=== PATIENT | female | born 1955 | race Asian ===

== ENCOUNTER 2023-06-05 14:34 | Emergency (ER) | payer MEDICARE ==
[~2023-06-05] VITALS: Ht 154.9 cm; Wt 63.5 kg
[2023-06-05] MEDS ORDERED: ONDANSETRON HCL 4 MG/2 ML VIAL IVP ONE (14:45)
[2023-06-05] MEDS ORDERED: NACL 0.9% 1,000 ML IV ONE (14:45)
[2023-06-05] MEDS ORDERED: KETOROLAC TROMETHAMINE 30 MG VIAL IVP ONE (14:45)
[2023-06-05 14:49] VITALS: BP_SYST 96; PULSE 76; RESP 20; TEMP 98.3; O2SAT 98
[2023-06-05 15:04] LABS: BASOPHILS % (AUTO) 0.4 % (0.0-2.0); EOSINOPHILS % (AUTO) 0.1 % (0.0-4.0); HEMATOCRIT 37.4 % (36-48); HEMOGLOBIN 12.5 g/dL (12.0-16.0); LYMPHOCYTES # (AUTO) 0.6 K/uL (1.0-5.5); LYMPHOCYTES % (AUTO) 29.4 % (20.5-51.5); MEAN CORPUSCULAR HEMOGLOBIN 31 pg (27-31); MEAN CORPUSCULAR HGB CONC 33 % (32-36); MEAN CORPUSCULAR VOLUME 91 fL (79.0-98.0); MONOCYTES # (AUTO) 0.4 K/uL (0.0-1.0); MONOCYTES % (AUTO) 16.3 % (1.7-9.3); NEUTROPHILS # (AUTO) 1.2 K/uL (1.8-7.7); NEUTROPHILS % (AUTO) 53.8 % (40.0-70.0); PLATELET COUNT (AUTO) 194 K/uL (130-430); WHITE BLOOD COUNT (AUTO) 2.2 K/uL (4.8-10.8)
[2023-06-05 15:16] LABS: CALCIUM 9.2 mg/dL (8.4-11.0); CREATININE 1.11 mg/dL (0.55-1.30); POTASSIUM 3.4 mmol/L (3.5-5.1)
[2023-06-05 15:21] LABS: ALBUMIN 3.8 g/dL (3.4-4.8); BILIRUBIN,DIRECT 0.2 mg/dL (0.0-0.3); TOTAL BILIRUBIN 0.5 mg/dL (0.0-1.0)
[2023-06-05] MEDS ORDERED: ONDA-8 TL (16:40)
[2023-06-05] MEDS ORDERED: AUG875 PO (16:40)
[2023-06-05] MEDS ORDERED: IBUP-1969 PO (16:40)
[2023-06-05 17:51] VITALS: BP_SYST 107; PULSE 64; RESP 16; TEMP 98.3; O2SAT 96
== END 2023-06-05 16:50 | disposition home or self-care (01) ==
LOC: SED 14:34
DX: S09.90XA Unspecified injury of head, initial encounter (principal); J32.9 Chronic sinusitis, unspecified; R11.0 Nausea; Z79.899 Other long term (current) drug therapy; W22.8XXA Striking against or struck by other objects, initial encounter; Y93.89 Activity, other specified; Y92.89 Other specified places as the place of occurrence of the external cause; Y99.8 Other external cause status
CPT/HCPCS: 99285; 96374; 70450; 96361; 96375; 80076; 80048; 83690; 85025; 36415; 76376; J1885; J2405; J7030